=== PATIENT | female | born 1965 | race Caucasian/White ===

== ENCOUNTER 2019-12-13 09:10 | Emergency (ER) | payer OTHER ==
[2019-12-13 09:41] LABS: ABSOLUTE BASOPHILS # (AUTO) 0.1 10^3/uL (0.0-0.2); ABSOLUTE EOSINOPHILS # (AUTO) 0.4 10^3/uL (0.0-0.6); ABSOLUTE LYMPHOCYTES (AUTO) 5.9 10^3/uL (0.5-4.7); ABSOLUTE MONOCYTES (AUTO) 1.1 10^3/uL (0.1-1.4); ABSOLUTE NEUT (AUTO) 7.2 10^3/uL (1.7-8.2); BASOPHILS % (AUTO) 0.4 % (0-2); EOSINOPHILS % (AUTO) 2.9 % (0-6); HEMATOCRIT 41.2 % (36.0-47.0); HEMOGLOBIN 14.3 g/dL (12.0-15.5); LYMPHOCYTES % (AUTO) 40.3 % (13-45); MEAN CORPUSCULAR HEMOGLOBIN 30.2 pg (27.0-33.4); MEAN CORPUSCULAR HGB CONC 34.6 g/dL (32.0-36.0); MEAN CORPUSCULAR VOLUME 87 fl (80-97); MONOCYTES % (AUTO) 7.6 % (3-13); PLATELET COUNT 324 10^3/uL (150-450); RED BLOOD COUNT 4.72 10^6/uL (3.72-5.28); RED CELL DISTRIBUTION WIDTH 12.1 % (11.5-14.0); SEGMENTED NEUTROPHILS % (AUTO) 48.8 % (42-78); TOTAL CELLS COUNTED % (AUTO) 100 %; WHITE BLOOD COUNT 14.7 10^3/uL (4.0-10.5)
[2019-12-13 09:50] LABS: VENOUS BLOOD BASE EXCESS -2.8 mmol/L; VENOUS BLOOD HCO3 21.7 mmol/L (20-32); VENOUS BLOOD PCO2 37.1 mmHg (35-63); VENOUS BLOOD PH 7.38 (7.30-7.42)
[2019-12-13 09:57] LABS: ALBUMIN 4.2 g/dL (3.5-5.0); ALKALINE PHOSPHATASE 100 U/L (38-126); ANION GAP 12 (5-19); ASPARTATE AMINO TRANSFERASE 40 U/L (14-36); BILIRUBIN,DIRECT 0.1 mg/dL (0.0-0.4); BILIRUBIN,TOTAL 0.5 mg/dL (0.2-1.3); BLOOD UREA NITROGEN 13 mg/dL (7-20); CALCIUM 9.4 mg/dL (8.4-10.2); CARBON DIOXIDE 25 mmol/L (22-30); CHLORIDE 105 mmol/L (98-107); CREATINE KINASE 213 U/L (30-135); GLUCOSE 99 mg/dL (75-110); POTASSIUM 3.9 mmol/L (3.6-5.0); TOTAL PROTEIN 7.6 g/dL (6.3-8.2)
--- NOTE | 2019-12-13 10:17 | RADIOLOGY REPORT (SQ) ---
EXAM DESCRIPTION: CHEST SINGLE VIEW COMPLETED DATE/TIME: 12/13/2019 9:55 am REASON FOR STUDY: Asthmatic bronchitis, thick green productive sputu COMPARISON: None. EXAM PARAMETERS: NUMBER OF VIEWS: One view. TECHNIQUE: Single frontal radiographic view of the chest acquired. RADIATION DOSE: NA LIMITATIONS: None. FINDINGS: LUNGS AND PLEURA: No opacities, masses or pneumothorax. No pleural effusion. MEDIASTINUM AND HILAR STRUCTURES: No masses. Contour normal. HEART AND VASCULAR STRUCTURES: Heart normal in size. Normal vasculature. BONES: No acute findings. HARDWARE: None in the chest. OTHER: No other significant finding. IMPRESSION: NO ACUTE RADIOGRAPHIC FINDING IN THE CHEST. TECHNICAL DOCUMENTATION: JOB ID: [id number] 2010 [employer] All Rights Reserved Reading location - IP/workstation name: [email or web address]
[2019-12-13 10:41] LABS: APPEARANCE,URINE CLEAR; BILIRUBIN,URINE NEGATIVE (NEGATIVE); COLOR,URINE STRAW; GLUCOSE, URINE NEGATIVE (NEGATIVE); KETONES,URINE NEGATIVE (NEGATIVE); LEUKOCYTE ESTERASE,URINE NEGATIVE (NEGATIVE); NITRITE,URINE NEGATIVE (NEGATIVE); PROTEIN,URINE NEGATIVE (NEGATIVE); URINE SPECIFIC GRAVITY 1.006; UROBILINOGEN,URINE NEGATIVE mg/dL (<2.0)
[2019-12-13 11:15] LABS: URINE AMPHETAMINES SCREEN NEGATIVE; URINE BARBITURATES SCREEN NEGATIVE; URINE BENZODIAZEPINES SCREEN NEGATIVE; URINE COCAINE SCREEN NEGATIVE; URINE MARIJUANA (THC) SCREEN NEGATIVE; URINE METHADONE SCREEN NEGATIVE; URINE PHENCYCLIDINE SCREEN NEGATIVE
[2019-12-13] MEDS ORDERED: ACETAMINOPHEN 325 MG TABLET PO ONE (11:26)
[2019-12-13] MEDS ORDERED: ONDANSETRON HCL INJ/PF 4 MG/2 ML SDV IV ONE (12:12)
--- NOTE | 2019-12-13 12:12 | ER Document Report ---
Entered by XOCHILT ROMO SCRIBE 12/13/19 0922 Acting as scribe for:SETH VALDES MD ED Respiratory Problem - General Chief Complaint: Shortness Of Breath Stated Complaint: SHORTNESS OF BREATH/COUGH Time Seen by Provider: 12/13/19 09:21 Mode of Arrival: Medic Information source: Patient, Emergency Med Personnel Cannot obtain history due to: Altered mental status Notes: This 54-year-old female patient presents to the emergency department today via EMS for complaints of shortness of breath with an associated cough. Patient was driving home from work in [place] and called her to tell him that she was not feeling well, he called EMS, and then drove to sit with the patient until EMS arrived. EMS states that when they arrived on scene the patient had pulled over to the side of the road and was with her . EMS reports that when they arrived on scene the patient had a room air oxygen saturation of 95% and was coughing up thick green sputum. EMS states that the patient's breathing rapidly improved after 2 breathing treatments. EMS states the patient then began complaining of some nausea so she was given 25 mg of Benadryl. EMS states that just before they arrived at the hospital, the patient became quite altered, repeating the same questions over and over again and being generally unaware of any of the events that had just occurred. Pertinent PMHx/PSHx: none - additional PMHx/PSHx not pertinent to this visit as recorded. Prehospital intervention: Solu-medrol treatments x2, 25 mg Benadryl. - Related Data Allergies/Adverse Reactions: Sulfa (Sulfonamide Antibiotics) Allergy (Verified 12/13/19 10:24) Past Medical History - General Information source: Patient Cannot obtain history due to: Altered mental status - Social History Smoking Status: Former Smoker - for a few years as a teenager Cigarette use (# per day): No Frequency of alcohol use: None Drug Abuse: None Occupation: respiratory therapist at [employer] Family History: Reviewed & Not Pertinent Renal/ Medical History: Reports: Hx Ovarian Cysts Past Surgical History: Reports: Hx Cholecystectomy, Other - Exploratory laparotomy for abdominal pain, determined to be ovarian cysts Review of Systems - Review of Systems Constitutional: No symptoms reported EENT: No symptoms reported Cardiovascular: No symptoms reported Respiratory: See HPI, Cough, Short of breath, Sputum Gastrointestinal: See HPI, Nausea Genitourinary: No symptoms reported Female Genitourinary: No symptoms reported Musculoskeletal: No symptoms reported Skin: No symptoms reported Hematologic/Lymphatic: No symptoms reported Neurological/Psychological: See HPI, Confusion -: Yes All other systems reviewed and negative Physical Exam - Vital signs Vitals: Resp Pulse Ox 17 100 12/13/19 09:13 12/13/19 09:13 - Notes Notes: Physical Exam: General: Alert, appears well. HEENT: Normocephalic. Atraumatic. PERRL. Extraocular movements intact. Oropharynx clear. Throat does not show any erythema. Right TM appears a little full and dull, left TM appears normal. Neck: Supple. Non-tender. Respiratory: No respiratory distress. Rhonchi with forced cough bilaterally. Room air oxygen saturation of100%. Cardiovascular: Regular rate and rhythm. Abdominal: Obese. Non-tender. No distension. Normal Bowel Sounds. Back: No gross abnormalities. Extremities: Moves all four extremities. Upper extremities: Normal inspection. Normal ROM. Lower extremities: Normal inspection. No edema. Normal ROM. Neurological: Patient is quite confused, repeats the same questions over and over again such as "did i wreck my car?" "What happened today?" Psychological: Normal affect. Normal Mood. Skin: Warm. Dry. Normal color. Course - Re-evaluation Re-evalutation: 12/13/19 10:57 At this time the patient continues to have fairly clear lungs with only rhonchi and very faint wheeze noted on forced cough. She is oxygenating well. She continues to be confused, repeatedly asking if she was in a car wreck, and how she got to the hospital. Her spouse is with her now, he states she has been asking him the same questions repeatedly since she got here. He reports that they are under considerable stress with her working night shifts at [employer] in [place] and he works dayshift[place] [facility] and [facility] resulting in a very long commute to work for the patient. They have a 3-year-old child they are caring for. He reports that 2 years ago she passed out in her car when she got to work in [place]. She was out for 15 to 20 seconds, was admitted to the hospital overnight. Her diagnosis was possible vasovagal reaction. 12/13/19 12:13 At about 11:20 AM, patient was complained of headache, she was given Tylenol 975 mg p.o. At about 12:10 PM, the patient developed nausea and vomiting and was given Zofran 8 mg IV. She is still waiting to go to MRI. 12/13/19 14:04 MRI was unremarkable. Long discussion with conversion type reaction with patient and spouse and the stress she is been under. Adding to that stress she has had bronchitis for at least 2 weeks and all of these things are preventing her from getting much sleep or rest. Her sensorium is much more clear now and she is recalling many details of the past several days. She is also complaining of burning in the throat, and severe pain and pressure in her ears. Examination of those areas does not show an explanation for her symptoms. We did discuss ways to help control her cough so she can get some rest and sleep. The steroids will help quite a bit in reducing inflammation and the other symptoms in her throat and ears. I have advised him to try the generic version of Delsym DM. She states the Tessalon Perles did not help much when she is taken them in the past. She does recall that last Sunday probably 1-1/2 weeks ago, she went to [facility] and received an inhaler and Robitussin-DM, but they refused to give her steroids when she requested them at that time. - Vital Signs Vital signs: Temp Pulse Resp BP Pulse Ox 97.5 F 20 137/61 H 97 12/13/19 09:20 12/13/19 12:19 12/13/19 12:19 12/13/19 12:18 - Laboratory Result Diagrams: 12/13/19 09:30 12/13/19 09:30 Laboratory results interpreted by me: 12/13/19 12/13/19 09:30 09:30 WBC 14.7 H Absolute Lymphs (auto) 5.9 H AST 40 H ALT 46 H Creatine Kinase 213 H - Diagnostic Test Radiology reviewed: Image reviewed, Reports reviewed - Chest x-ray does not show acute cardiopulmonary process. MRI of the brain is normal. - EKG Interpretation by Me EKG shows normal: Sinus rhythm, [place], Intervals, QRS Complexes. abnormal: ST-T Waves - Minimal ST depression in the lateral leads Rate: Normal - 75 Rhythm: NSR When compared to previous EKG there are: Previous EKG unavailable Discharge - Discharge Clinical Impression: Bronchitis with bronchospasm, Viral upper respiratory tract infection with cough, Conversion reaction Condition: Stable Disposition: HOME, SELF-CARE Additional Instructions: Bronchitis with Bronchospasm (Wheezing): You have bronchitis with bronchospasm (wheezing). Sometimes people develop wheezing with a chest cold. This occurs either because of an underlying tendency toward asthma or because the virus itself irritates the bronchial tubes. This irritation causes cough, shortness of breath, and wheezing. Emergency treatment of bronchospasm may include adrenaline shots or bronchodilator aerosol. You may feel lightheaded and have a rapid pulse for an hour or two. Rest and get plenty of fluids. At home, we'll treat you with a bronchodilator inhaler. Corticosteroids may be required for some patients. Until you recover, avoid chemical fumes, dusts, pollens, and exercising in very cold or dry air. If you smoke, stop now! Most cases of bronchitis get better without antibiotics. We prescribe antibiotics when we believe bacteria are damaging your airways, or if there's high risk the bronchitis will worsen into pneumonia. Increase your fluid intake. A cool mist humidifier may make your lungs more comfortable. An expectorant (cough medicine that loosens phlegm) can help. Repeated episodes of bronchitis and bronchospasm may result in lung damage -- for example, chronic bronchitis, recurrent pneumonias, or emphysema. If you develop a fever, increased wheezing, chest pain, or severe shortness of breath, you should contact the doctor immediately. Conversion Reaction: Your short-term memory deficits and inability to remember the same question from one minute to the next, seems most consistent with a conversion reaction. You do admit to being under considerable stress recently, and add to that the bronchitis, wheezing, and inability to really get any quality sleep or rest. This stress caused reaction will probably resolve itself with plenty of rest and sleep. Start the medications as prescribed tomorrow. Try the generic version of Delsym DM to help suppress your cough. Drink plenty of fluids and get plenty of rest. Follow-up with your primary care provider if not improving. RETURN TO THE EMERGENCY ROOM IF ANY NEW OR WORSENING SYMPTOMS. Prescriptions: Prednisone [Deltasone 10 mg Tablet] 10 mg PO ASDIR PRN #21 tablet PRN Reason: Albuterol Sulfate [Proair Hfa Inhalation Aerosol 8.5 gm Mdi] 2 puff IH Q4 PRN #1 mdi PRN Reason: Azithromycin [Zithromax 250 mg Tablet] 250 mg PO DAILY #4 tablet Forms: Return to Work Scribe Attestation: 12/13/19 14:06 I personally performed the services described in the documentation, reviewed and edited the documentation which was dictated to the scribe in my presence, and it accurately records my words and actions. I personally performed the services described in the documentation, reviewed and edited the documentation which was dictated to the scribe in my presence, and it accurately records my words and actions.
--- NOTE | 2019-12-13 13:36 | RADIOLOGY REPORT (SQ) ---
EXAM DESCRIPTION: MRI HEAD WITHOUT COMPLETED DATE/TIME: 12/13/2019 12:58 pm REASON FOR STUDY: Acute confusion and memory loss COMPARISON: None. TECHNIQUE: Multiplanar imaging includes non-contrasted T1, T2, FLAIR, and diffusion with ADC map seq uences. Images stored on PACS. LIMITATIONS: None. FINDINGS: ANATOMY: No anomalies. Normal vascular flow voids. Pituitary fossa normal. CSF SPACES: Normal in size and contour. No hemorrhage. CEREBRUM: Sulci and gyri normal in size and contour. Normal white matter signal on FLAIR imaging. No evidence of hemorrhage, mass, or extraaxial fluid collection. POSTERIOR FOSSA: No signal alteration. No hemorrhage. No edema, masses or mass effect. Internal toyin tory canals, cerebello-pontine angles, mastoids normal. DIFFUSION IMAGING: Negative for acute or sub-acute infarction. ORBITS: No masses. Globes normal. PARANASAL SINUSES: No fluid levels. Mucosa normal. OTHER: No other significant finding. IMPRESSION: NORMAL MRI OF THE BRAIN WITHOUT INTRAVENOUS GADOLINIUM CONTRAST. EVIDENCE OF ACUTE STROKE: NO. TECHNICAL DOCUMENTATION: JOB ID: [id number] 2010 [employer]- All Rights Reserved Reading location - IP/workstation name: [email or web address]
[2019-12-13] MEDS ORDERED: PREDNISONE 20 MG TABLET PO ONE (14:05)
[2019-12-13] MEDS ORDERED: AZITHROMYCIN 250 MG TABLET PO ONE (14:05)
[2019-12-13 14:23] VITALS: BP 143/81
--- NOTE | 2019-12-13 22:07 | EKG REPORT ---
SEVERITY:- BORDERLINE ECG - SINUS RHYTHM BORDERLINE T ABNORMALITIES, INFERIOR LEADS : Confirmed by: Felipa Rodriguez 13-Dec-2019 22:06:03
--- NOTE | 2019-12-13 22:07 | EKG REPORT ---
SEVERITY:- OTHERWISE NORMAL ECG - SINUS RHYTHM MINIMAL ST DEPRESSION, LATERAL LEADS : Confirmed by: Felipa Rodriguez 13-Dec-2019 22:06:14
== END 2019-12-13 14:29 | disposition home or self-care (01) ==
LOC: ER 09:10
DX: J40 Bronchitis, not specified as acute or chronic (principal); J06.9 Acute upper respiratory infection, unspecified; B97.89 Other viral agents as the cause of diseases classified elsewhere; J98.01 Acute bronchospasm; F44.9 Dissociative and conversion disorder, unspecified; R06.02 Shortness of breath; R05 Cough; R51 Headache; R11.2 Nausea with vomiting, unspecified; H92.03 Otalgia, bilateral; R09.89 Other specified symptoms and signs involving the circulatory and respiratory systems; R94.31 Abnormal electrocardiogram [ECG] [EKG]; Z87.891 Personal history of nicotine dependence; Z88.2 Allergy status to sulfonamides
CPT/HCPCS: 93005; 99285; 96374; 36415; 82962; 82550; 85025; 80053; 81001; 84484; 80307; 82803; 70551; 71045; 93010; J7512; J2405